=== PATIENT | male | born 1955 | race African-American/Black ===

== ENCOUNTER 2018-12-05 14:05 | Inpatient (IN) | payer OTHER, MEDICAID ==
[~2018-12-05] VITALS: Ht 172.7 cm; Wt 79.5 kg
[2018-12-05] MEDS ORDERED: KEPPSOL GT (14:10)
[2018-12-05] MEDS ORDERED: SODIUM CHLORIDE 0.9% 1,000 ML IV ONE (15:24)
[2018-12-05] MEDS ORDERED: LEVETIRACETAM 500MG PREMIX 100 ML IV ONE (15:30)
[2018-12-05 16:15] LABS: BASOPHILS % 0.5 % (0.0-2.0); EOSINOPHILS % 0.6 % (0.0-5.0); HEMATOCRIT. 42.8 % (42.0-52.0); HEMOGLOBIN. 14.2 g/dL (14.0-18.0); LYMPHOCYTES % 17.4 % (20.0-50.0); MEAN CORPUSCULAR HEMOGLOBIN 27.2 pg (28.0-32.0); MEAN CORPUSCULAR VOLUME 82.1 fL (80.0-94.0); MEAN PLATELET VOLUME 7.5 fl (7.4-10.4); MONOCYTES % 6.5 % (2.0-8.0); PLATELET 280 x1000/uL (130-400); RED BLOOD CELL COUNT 5.22 mill/uL (4.7-6.1); RED CELL DISTRIBUTION WIDTH 14.5 % (11.6-14.6)
[2018-12-05 16:20] LABS: CHLORIDE 109 mEq/L (98-107); INR 1.1; PROTHROMBIN TIME 10.8 sec (9.1-11.1)
[2018-12-05 16:31] LABS: CREATINE KINASE 169 IU/L (39-308)
[2018-12-05] MEDS ORDERED: LORAZEPAM 2MG/ML CPJ IM ONE ×2 (20:00→20:45)
[2018-12-06] VITALS (7 sets, daily range): BP systolic 96–169; BP diastolic 59–88
[2018-12-06] MEDS ORDERED: DOCUSATE SODIUM 100MG CAPSULE PO PRN (00:30)
[2018-12-06] MEDS ORDERED: HYDROCODONE/ACETAMINOPHEN 5/325MG TABLET PO PRN (00:30)
[2018-12-06] MEDS ORDERED: GUAIFENESIN 200MG/10ML SUGAR FREE UDC PO PRN (00:30)
[2018-12-06] MEDS ORDERED: CLONIDINE 0.1MG TABLET PO PRN (00:30)
[2018-12-06] MEDS ORDERED: ACETAMINOPHEN 325MG TABLET PO PRN (00:30)
[2018-12-06] MEDS ORDERED: ONDANSETRON HCL 4MG/2ML INJ IV PRN (00:30)
[2018-12-06] MEDS: DEXT 5%/0.45% NACL 1000ML 1,000 ML IV SCH ×2 (01:01→15:50)
[2018-12-06 07:59] LABS: CREATINE KINASE 461 IU/L (39-308)
[2018-12-06] MEDS: AMLODIPINE 10MG TABLET PO SCH (08:15)
[2018-12-06] MEDS: LEVETIRACETAM 500 MG in SODIUM CHLORIDE 0.9% 100 ML IV SCH ×2 (10:52→21:40)
[2018-12-06] MEDS ORDERED: INFLUENZA VACCINE IM ONE (13:00)
[2018-12-06] MEDS: LEVOFLOXACIN 500MG PREMIX 100 ML IV SCH (13:08)
[2018-12-06] MEDS: LORAZEPAM 2MG/ML CPJ IV PRN (22:43)
[2018-12-07] VITALS: BP 118/79
[2018-12-07 04:00] VITALS: BP 118/64
[2018-12-07] MEDS: DEXT 5%/0.45% NACL 1000ML 1,000 ML IV SCH ×3 (04:20→21:01)
[2018-12-07] MEDS: LORAZEPAM 2MG/ML CPJ IV PRN (04:47)
[2018-12-07] MEDS: AMLODIPINE 10MG TABLET PO SCH (09:35)
[2018-12-07] MEDS: LEVETIRACETAM 500 MG in SODIUM CHLORIDE 0.9% 100 ML IV SCH (09:35)
[2018-12-07 09:42] VITALS: BP 129/80
[2018-12-07 12:00] VITALS: BP 136/84
[2018-12-07] MEDS: LEVOFLOXACIN 500MG PREMIX 100 ML IV SCH (12:05)
[2018-12-07] MEDS ORDERED: LIDOCAINE HCL/PF 1% 2ML VIAL ONE (14:44)
[2018-12-07 15:00] LABS: BG BASE EXCESS -0.7 mmol/L (-2.0-2.0); BG CARBOXYHEMOGLOBIN 0.7 % (0.5-1.5); BG FRACTION INSPIRED OXYGEN 21; BG HCO3 ACT 23.4 mmol/L (22.0-26.0); BG METHEMOGLOBIN 0.1 % (0.0-1.5); BG OXYHEMOGLOBIN 96.2 % (94.0-97.0); BG PCO2 36.9 mmHg (35.0-45.0); BG PO2 94.7 mmHg (75.0-100.0); BG SAMPLE SITE RIGHT RADIAL; BG TOTAL HEMOGLOBIN 14.2 g/dL (12.0-18.0); BG VENT MODE ROOM AIR
[2018-12-07 15:42] LABS: CREATINE KINASE 479 IU/L (39-308)
[2018-12-07 15:43] LABS: CHLORIDE 113 mEq/L (98-107)
[2018-12-07] MEDS ORDERED: PHENYTOIN SODIUM 500 MG in SODIUM CHLORIDE 0.9% 50 ML IV ONE (15:45)
[2018-12-07] MEDS ORDERED: PHENYTOIN SODIUM EXTENDED 100MG CAPSULE PO NR (15:45)
[2018-12-07 16:00] VITALS: BP 107/52
[2018-12-07 20:00] VITALS: BP 94/58
[2018-12-07 20:19] LABS: CLARITY URINE CLEAR (CLEAR); COLOR URINE YELLOW (YELLOW); KETONES URINE NEGATIVE (NEGATIVE); LEUKOCYTE ESTERASE URINE NEGATIVE (NEGATIVE); NITRITE URINE NEGATIVE (NEGATIVE); OCCULT BLOOD URINE NEGATIVE (NEGATIVE); PROTEIN URINE NEGATIVE (NEGATIVE); SPECIFIC GRAVITY URINE 1.007 (1.005-1.030); UROBILINOGEN URINE 0.2 E.U./dL (0.2-1.0)
[2018-12-07 20:28] LABS: *AMPHETAMINES SCREEN URINE NEGATIVE (NEGATIVE); *BARBITURATES SCREEN URINE NEGATIVE (NEGATIVE); *BENZODIAZEPINES SCREEN URINE NEGATIVE (NEGATIVE)
[2018-12-07 20:29] LABS: *COCAINE SCREEN URINE NEGATIVE (NEGATIVE); CANNABINOID URINE SCREEN NEGATIVE (NEGATIVE); METHADONE URINE SCREEN NEGATIVE (NEGATIVE); OPIATES URINE SCREEN PRESUMTIVE POSITIVE (NEGATIVE); PHENCYCLIDINE URINE SCREEN NEGATIVE (NEGATIVE)
[2018-12-07] MEDS: LEVETIRACETAM 500MG TABLET PO SCH (21:01)
[2018-12-07] MEDS: PHENYTOIN SODIUM EXTENDED 100MG CAPSULE PO SCH (21:04)
[2018-12-07 21:19] LABS: BASOPHILS % 0.6 % (0.0-2.0); EOSINOPHILS % 2.5 % (0.0-5.0); HEMATOCRIT. 40.9 % (42.0-52.0); HEMOGLOBIN. 13.6 g/dL (14.0-18.0); LYMPHOCYTES % 24.4 % (20.0-50.0); MEAN CORPUSCULAR HEMOGLOBIN 27.3 pg (28.0-32.0); MEAN CORPUSCULAR VOLUME 82.1 fL (80.0-94.0); MEAN PLATELET VOLUME 7.5 fl (7.4-10.4); MONOCYTES % 6.7 % (2.0-8.0); NEUTROPHILS % 65.8 % (40.0-76.0); PLATELET 276 x1000/uL (130-400); RED BLOOD CELL COUNT 4.99 mill/uL (4.7-6.1); RED CELL DISTRIBUTION WIDTH 14.4 % (11.6-14.6)
[2018-12-08] VITALS: BP 101/61
[2018-12-08 04:00] VITALS: BP 102/65
[2018-12-08] MEDS: PHENYTOIN SODIUM EXTENDED 100MG CAPSULE PO SCH ×2 (06:37→13:30)
[2018-12-08 07:56] LABS: MEAN CORPUSCULAR HEMOGLOBIN 26.8 pg (28.0-32.0); MEAN CORPUSCULAR VOLUME 82.3 fL (80.0-94.0); PLATELET 257 x1000/uL (130-400); RED BLOOD CELL COUNT 5.22 mill/uL (4.7-6.1); RED CELL DISTRIBUTION WIDTH 14.3 % (11.6-14.6)
[2018-12-08 08:42] LABS: CHLORIDE 109 mEq/L (98-107)
[2018-12-08] MEDS: AMLODIPINE 10MG TABLET PO SCH (09:00)
[2018-12-08 09:13] VITALS: BP 104/77
[2018-12-08] MEDS: LEVETIRACETAM 500MG TABLET PO SCH (09:34)
[2018-12-08 10:06] LABS: VITAMIN B12 SERUM 899 pg/mL (211-911)
[2018-12-08 12:00] VITALS: BP 101/59
[2018-12-08] MEDS: LEVOFLOXACIN 500MG PREMIX 100 ML IV SCH (12:10)
[2018-12-08 16:00] VITALS: BP 111/65
[2018-12-08] MEDS: DEXT 5%/0.45% NACL 1000ML 1,000 ML IV SCH (18:40)
[2018-12-08 21:01] VITALS: BP 137/79
== END 2018-12-08 21:19 | disposition home or self-care (01) | DRG 101 ==
LOC: ER 14:05 → 5WST 20:17 → ENRESERV 22:57
PROVIDERS: ADMIT Hospitalist; ATTEND Hospitalist
DX: G40.409 Other generalized epilepsy and epileptic syndromes, not intractable, without status epilepticus (principal); F03.90 Unspecified dementia, unspecified severity, without behavioral disturbance, psychotic disturbance, mood disturbance, and anxiety; E86.0 Dehydration; I10 Essential (primary) hypertension; Z79.899 Other long term (current) drug therapy
CPT/HCPCS: 36415; 36600; 71045; 80048; 80185; 80305; 82140; 82375; 82542; 82550; 82553; 82607; 82805; 84443; 85027; 90686; 93005; 93970; 96372; 96374; 97162; 99285; J1953; J1956; J2060; J3490; J7030; J7050

== ENCOUNTER 2019-01-14 19:14 | Emergency (ER) | payer OTHER, MEDICAID ==
[~2019-01-14] VITALS: Ht 172.7 cm; Wt 73.0 kg
[~2019-01-14 19:14] MED LIST: KEPPSOL GT
[2019-01-14] MEDS ORDERED: SODIUM CHLORIDE 0.9% 1,000 ML IV ONE (19:59)
[2019-01-14] MEDS ORDERED: LEVETIRACETAM 500MG PREMIX 100 ML IV ONE (20:00)
[2019-01-14 20:28] LABS: BASOPHILS % 0.6 % (0.0-2.0); HEMATOCRIT. 41.7 % (42.0-52.0); HEMOGLOBIN. 13.5 g/dL (14.0-18.0); LYMPHOCYTES % 24.8 % (20.0-50.0); MEAN CORPUSCULAR HEMOGLOBIN 26.8 pg (28.0-32.0); MEAN CORPUSCULAR VOLUME 82.4 fL (80.0-94.0); MEAN PLATELET VOLUME 8.1 fl (7.4-10.4); MONOCYTES % 7.3 % (2.0-8.0); NEUTROPHILS % 66.3 % (40.0-76.0); PLATELET 268 x1000/uL (130-400); RED BLOOD CELL COUNT 5.06 mill/uL (4.7-6.1); RED CELL DISTRIBUTION WIDTH 14.4 % (11.6-14.6)
[2019-01-14 20:34] LABS: CHLORIDE 109 mEq/L (98-107)
[2019-01-14 20:37] LABS: INR 1.1; PARTIAL THROMBOPLASTIN TIME 28.9 sec (23.4-31.0); PROTHROMBIN TIME 10.6 sec (9.1-11.1)
[2019-01-14 20:38] LABS: ETHANOL BLOOD < 10 mg/dL
[2019-01-14 21:44] LABS: CLARITY URINE CLEAR (CLEAR); COLOR URINE YELLOW (YELLOW); KETONES URINE TRACE (NEGATIVE); LEUKOCYTE ESTERASE URINE NEGATIVE (NEGATIVE); NITRITE URINE NEGATIVE (NEGATIVE); OCCULT BLOOD URINE NEGATIVE (NEGATIVE); PROTEIN URINE TRACE (NEGATIVE); SPECIFIC GRAVITY URINE 1.037 (1.005-1.030); UROBILINOGEN URINE 0.2 E.U./dL (0.2-1.0)
[2019-01-14 21:53] LABS: *BARBITURATES SCREEN URINE NEGATIVE (NEGATIVE); *BENZODIAZEPINES SCREEN URINE NEGATIVE (NEGATIVE); *COCAINE SCREEN URINE NEGATIVE (NEGATIVE); METHADONE URINE SCREEN NEGATIVE (NEGATIVE); OPIATES URINE SCREEN NEGATIVE (NEGATIVE)
[2019-01-14 21:54] LABS: *AMPHETAMINES SCREEN URINE NEGATIVE (NEGATIVE); CANNABINOID URINE SCREEN PRESUMTIVE POSITIVE (NEGATIVE); PHENCYCLIDINE URINE SCREEN NEGATIVE (NEGATIVE)
[2019-01-14 23:17] VITALS: BP 118/61
== END 2019-01-14 23:28 | disposition home or self-care (01) ==
LOC: ER 19:14
DX: R41.0 Disorientation, unspecified (principal); F03.90 Unspecified dementia, unspecified severity, without behavioral disturbance, psychotic disturbance, mood disturbance, and anxiety; I10 Essential (primary) hypertension; G40.909 Epilepsy, unspecified, not intractable, without status epilepticus
CPT/HCPCS: 36415; 70450; 71045; 80053; 80305; 80320; 81003; 83880; 84484; 85025; 85610; 85730; 93005; 96365; 96366; 99284; J1953; J7030; G0480